=== PATIENT | female | born 1935 | race African-American/Black ===

== ENCOUNTER 2017-02-11 10:36 | Emergency (ER) | payer MEDICARE ==
[~2017-02-11 10:36] MED LIST: DENIES HOME MEDS
== END 2017-02-11 13:47 | disposition home or self-care (01) ==
LOC: ER 10:36
DX: S00.03XA Contusion of scalp, initial encounter (principal); W19.XXXA Unspecified fall, initial encounter
CPT/HCPCS: 70450; 72170; 73030-RT; 73502-RT; 99284